=== PATIENT | male | born 1990 | race Caucasian/White ===

== ENCOUNTER → 2022-01-28 12:46 | Outpatient (BNVA) | payer BC, SELFPAY | PROVIDERS: Visit Provider Emergency Medicine | DX: R68.89 Other general symptoms and signs (principal) | CPT/HCPCS: 87400 ==

== ENCOUNTER 2022-08-20 06:06 | Outpatient (CLI) | payer BC, SELFPAY ==
--- NOTE | 2022-08-20 | US_ITS ---
WS: [id number] Complete ABDOMINAL ULTRASOUND HISTORY: ABD PAIN COMPARISON: None available. Liver: 15.5 cm in length. Normal size liver with mild hepatic steatosis. The entire liver is poorly v isualized due to poor penetration and attenuation. No mass or bile duct dilatation. Portal Vein: Normal hepatopetal flow with monophasic waveform. Gallbladder: Normally distended with no gallstones, wall thickening or pericholecystic fluid. Gallbladder wall thickness: 0.2 cm. Pancreas: Normal size and echogenicity. CBD: 0.3 cm. Right kidney: 12.1 cm x 5.4 cm x 5.0 cm. No mass, cortical thickening or hydronephrosis. Left kidney: 12.1 cm x 6.0 cm x 5.8 cm. No mass, cortical thickening or hydronephrosis. Spleen: Normal size and echogenicity. Abdominal aorta and IVC are within normal limits. No ascites. US/US abdomen complete* [id number] IMPRESSION: 1. Normal gallbladder. 2. Mild hepatic steatosis. No bile duct dilatation.
== END 2022-08-20 06:07 | disposition home or self-care (01) ==
LOC: RAD 06:08
PROVIDERS: Visit Provider Nurse Practitioner Family
DX: R10.9 Unspecified abdominal pain (principal); K76.0 Fatty (change of) liver, not elsewhere classified
CPT/HCPCS: 76700

== ENCOUNTER → 2023-05-31 09:25 | Outpatient (BNVA) | payer BC, SELFPAY | PROVIDERS: Visit Provider Nurse Practitioner Family | DX: R69 Illness, unspecified (principal); J22 Unspecified acute lower respiratory infection; B96.89 Other specified bacterial agents as the cause of diseases classified elsewhere | CPT/HCPCS: 87400; 87426 ==